=== PATIENT | male | born 1955 | race Caucasian/White ===

== ENCOUNTER → 2016-11-16 | Outpatient (CLI) | payer OTHER, BC ==
[~2016-11-16] MED LIST: EPP3 IM; IBUP-1050 PO; MULT-513 PO
--- NOTE | 2016-11-16 13:18 | DIAGNOSTIC IMAGING REPORT ---
LEFT KNEE 3 VIEWS CLINICAL HISTORY: BOTH KNEE PAIN/FALL trauma. Pain. COMPARISON: None. DISCUSSION: The bones and joint spaces appear intact. There is no evidence of fracture, dislocation or bony disease. Osteophytic change superior aspect of the patella on a degenerative basis. IMPRESSION: No acute bony abnormality. The above report was generated using voice recognition software. It may contain grammatical, syntax or spelling errors. Electronically signed by: Gus Griffin M.D. 11/16/2016 1:17 PM Dictated Date/Time: 11/16/2016 1:16 PM
--- NOTE | 2016-11-16 13:19 | DIAGNOSTIC IMAGING REPORT ---
RIGHT KNEE 3 VIEWS CLINICAL HISTORY: 61 years-old Male presenting with BOTH KNEE PAIN/FALL Right. TECHNIQUE: Frontal, lateral, and sunrise views of the right knee were obtained. COMPARISON: Correlation made to plain radiographs of the left knee performed the same day. FINDINGS: No acute fracture or malalignment. Minimal osteophytosis at the lateral tibial plateau and superior pole of the patella. Prominent enthesophyte at the quadriceps tendon insertion. Trace knee joint effusion may be present. Atherosclerosis. IMPRESSION: 1. No acute osseous injury of the right knee. 2. Minimal degenerative change in the lateral and patellofemoral compartments. Electronically signed by: Caio Donis M.D. 11/16/2016 1:18 PM Dictated Date/Time: 11/16/2016 1:17 PM
== END | disposition home or self-care (01) ==
LOC: C.RAD1850 13:00
PROVIDERS: ATTEND Nurse Practitioner Adult Health
DX: M25.561 Pain in right knee (principal); M25.562 Pain in left knee; W19.XXXA Unspecified fall, initial encounter

== ENCOUNTER → 2016-11-23 | Outpatient (CLI) | payer OTHER, BC ==
--- NOTE | 2016-11-23 13:45 | DIAGNOSTIC IMAGING REPORT ---
RIGHT ELBOW MIN 3 VIEWS ROUTINE CLINICAL HISTORY: Right olecranon pain status post fall. COMPARISON: None FINDINGS: Alignment of the right elbow is anatomic. There is no acute fracture or joint effusion. Slight irregularity of the medial and lateral epicondyles is chronic. IMPRESSION: No acute fracture or joint effusion of the right elbow. Electronically signed by: Curt Figueroa M.D. 11/23/2016 1:44 PM Dictated Date/Time: 11/23/2016 1:42 PM
== END | disposition home or self-care (01) ==
LOC: C.RAD1850 13:12
PROVIDERS: ATTEND Nurse Practitioner Adult Health
DX: M79.621 Pain in right upper arm (principal); W19.XXXA Unspecified fall, initial encounter

== ENCOUNTER → 2017-11-21 | Outpatient (CLI) | payer BC, OTHER | END | disposition home or self-care (01) | LOC: C.RDSM 12:02 | PROVIDERS: ATTEND Orthopaedic Surgery | DX: R52 Pain, unspecified (principal) ==